=== PATIENT | female | born 1955 | race Caucasian/White ===

== ENCOUNTER 2019-03-13 12:51 | Emergency (ER) | payer OTHER ==
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
[2019-03-13 14:00] VITALS: BP 113/69
== END 2019-03-13 14:00 | disposition home or self-care (01) ==
LOC: ED 12:51
DX: S09.90XA Unspecified injury of head, initial encounter (principal); W01.0XXA Fall on same level from slipping, tripping and stumbling without subsequent striking against object, initial encounter; Y92.830 Public park as the place of occurrence of the external cause
CPT/HCPCS: 99282